=== PATIENT | female | born 1975 | race Two or more races ===

== ENCOUNTER 2018-12-26 15:35 | Emergency (ER) | payer MEDICAID ==
[~2018-12-26] VITALS: Ht 154.9 cm; Wt 79.6 kg
[~2018-12-26 15:35] MED LIST: CEPH-443 PO; DICY10CA40 PO; DOCU-144 PO; FER325 PO; IBUP-1706; LABE200T25 PO; METF-849 PO; METH250T5 PO; ONDA4TAB35 PO; PAIN MEDS
[2018-12-26 15:54] VITALS: Ht 154.9 cm; Wt 79.6 kg
[2018-12-26] MEDS ORDERED: ACET500C5 PO (18:04)
[2018-12-26] MEDS ORDERED: FLUC150T41 PO (18:07)
--- NOTE | 2018-12-26 18:08 | ERD ---
ER Documentation Chief Complaint Chief Complaint lower back pain w/vaginal problems x 1mth HPI A 43-year-old female presents ED complaining of several unrelated issues. After talking to her via in demand nancy for Kiswahili interpretation, patient was complaining mostly of a urinary tract infection. She reports that in October 29 she went to see a provider who prescribed Flagyl with no relief of her symptoms. She Returned back to the provider who prescribed her Flagyl again on November 05 in addition to antifungal cream. Patient reports that this again did not help her symptoms. She is having pelvic pain and burning with urination. She reports that she is diabetic and her last A1c was around 9.0. Reports that her blood sugar this morning was 297 and when done in the ED it was 351. Patient states she goes to [facility] and is seen by Dr. WEEKS. ROS All systems reviewed and are negative except as per history of present illness. Medications Home Meds Active Scripts Fluconazole* (Fluconazole*) 150 Mg Tablet, 150 MG PO every 72 hrs, #3 TAB Prov:RAHEEM RENEE PA-C 12/26/18 Acetaminophen* (Tylophen*) 500 Mg Capsule, 1 CAP PO Q6H PRN for PAIN AND OR ELEVATED TEMP, #20 CAP Prov:RAHEEM RENEE PA-C 12/26/18 Dicyclomine HCl (Dicyclomine HCl) 10 Mg Capsule, 10 MG PO QID for abdominal cramping, #30 CAP Prov:MATTHEW SNOW NP 10/09/15 Ondansetron Hcl* (Zofran* ODT) 4 mg -ODT Tab.disper, 4 MG PO Q8 PRN for NAUSEA AND/OR VOMITING, #30 TAB Prov:MATTHEW SNOW LANDSCAPE NURSERYMAN 10/09/15 Docusate Sodium* (Colace*) 100 Mg Capsule, 100 MG PO BID, #60 CAP Prov:MATTHEW SNOW LANDSCAPE NURSERYMAN 10/09/15 Ferrous Sulfate* (Ferrous Sulfate*) 325 Mg Tabec, 325 MG PO BID, #60 TAB Prov:MATTHEW SNOW [employer]ANDSCAPE NURSERYMAN 10/09/15 Reported Medications Metformin* (Glucophage*) Unknown Strength Tab, PO DAILY, #20 TAB 10/08/15 Ibuprofen* Susp (Motrin* Susp) 20 Mg/Ml Susp 07/11/11 Labetalol Hcl* (Labetalol Hcl*) 200 Mg Tablet, 200 MG PO BID 07/11/11 Methyldopa* (Aldomet*) 250 Mg Tablet, 250 MG PO TID 07/11/11 Cephalexin* (Keflex*) 500 Mg Capsule, 500 MG PO TID 07/11/11 [Pain Meds] No Conflict Check 07/11/11 Allergies Allergies: Coded Allergies: No Known Drug Allergies (Verified Allergy, Mild, 07/11/11) PMhx/Soc History of Surgery: Yes (;L Ovarian Cyst Removal, hernia repair) Anesthesia Reaction: No Hx Neurological Disorder: No Hx Respiratory Disorders: No Hx Cardiac Disorders: Yes (HTN) Hx Psychiatric Problems: No Hx Miscellaneous Medical Probl: Yes (DM,Anemia,Dyslipidemia) Hx Alcohol Use: No Hx Substance Use: No Hx Tobacco Use: No Smoking Status: Never smoker FmHx Family History: No diabetes Physical Exam Vitals Vital Signs Date Temp Pulse Resp B/P (MAP) Pulse Ox O2 O2 Flow FiO2 Time Delivery Rate 12/26/18 98.7 76 18 135/82 99 18:42 (99) 12/26/18 98.3 92 18 136/73 96 15:54 (94) Physical Exam Const: No acute distress Head: Atraumatic Eyes: Normal Conjunctiva ENT: Normal External Ears, Nose and Mouth. Neck: Full range of motion. Resp: Clear to auscultation bilaterally Cardio: Regular rate and rhythm, Abd: Tenderness to her suprapubic region. Skin: No petechiae or rashes Back: Tenderness to her lumbar spine Ext: No cyanosis, or edema Neur: Awake and alert Psych: Normal Mood and Affect Result Diagram: 12/26/18 1710 12/26/18 1708 Results 24 hrs Laboratory Tests Test 12/26/18 17:06 12/26/18 17:08 12/26/18 17:10 12/26/18 17:11 Urine Color STRAW Urine Clarity CLEAR Urine pH 6.0 Urine Specific 1.035 [place] Urine Ketones 1+ mg/dL Urine Nitrite NEGATIVE mg/dL Urine Bilirubin NEGATIVE mg/dL Urine NEGATIVE mg/dL Urobilinogen Urine Leukocyte NEGATIVE Casey/ul Esterase Urine Microscopic 33 /HPF RBC Urine Microscopic 2 /HPF WBC Urine Squamous FEW /HPF Epithelial Cells Urine Hemoglobin 3+ mg/dL Urine Glucose 3+ mg/dL Urine Total NEGATIVE mg/dl Protein Sodium Level 138 mmol/L Potassium Level 4.4 mmol/L Chloride Level 102 mmol/L Carbon Dioxide 26 mmol/L Level Anion Gap 10 Blood Urea 10 mg/dl Nitrogen Creatinine 0.44 mg/dl Est Glomerular > 60 mL/min Filtrat Rate mL/min Glucose Level 351 mg/dl Calcium Level 9.7 mg/dl White Blood Count 7.2 10^3/ul Red Blood Count 4.86 10^6/ul Hemoglobin 14.2 g/dl Hematocrit 42.5 % Mean Corpuscular 87.4 fl Volume Mean Corpuscular 29.2 pg Hemoglobin Mean Corpuscular 33.4 g/dl Hemoglobin Concen t Red Cell 12.7 % Distribution Width Platelet Count 326 10^3/UL Mean Platelet 8.7 fl Volume Immature 0.400 % Granulocytes % Neutrophils % 56.7 % Lymphocytes % 34.4 % Monocytes % 6.3 % Eosinophils % 1.9 % Basophils % 0.3 % Nucleated Red 0.0 /100WBC Blood Cells % Immature 0.030 10^3/ul Granulocytes # Neutrophils # 4.1 10^3/ul Lymphocytes # 2.5 10^3/ul Monocytes # 0.5 10^3/ul Eosinophils # 0.1 10^3/ul Basophils # 0.0 10^3/ul Nucleated Red 0.0 10^3/ul Blood Cells # POC Beta HCG, NEGATIVE Qualitative Test 12/26/18 17:52 Bedside Glucose 317 mg/dL Procedures/MDM ED COURSE: The patient was stable throughout ED course. I kept the patient informed of laboratory and diagnostic imaging results throughout the ED course. MEDICATIONS GIVEN: [None.] MEDICAL DECISION MAKING: Patient is a 43-year-old female complaining of vaginal infection x1 month. Patient is a uncontrolled diabetic with her last A1c around 9.0 and her blood sugar level 351 today in the ED. Patient had a urinalysis done showing no urinary tract infection but ketones and glucose in her urine. Was also bloody urine but patient is on her period currently. I believe patient is suffering from a yeast infection due to her uncontrolled diabetes. Patient was instructed to follow-up with primary care in order to manage her diabetic problem. Patient was educated that her infection will keep recurring illness her diabetic problem is improved. Patient was discharged with fluconazole. Her vital signs were reviewed. Patient is afebrile. Patient was not hypoxic. Patient was hemodynamically stable. PRESCRIPTION: Fluconazole, Tylenol DISCHARGE: At this time, patient is stable for discharge and outpatient management. I have instructed the patient to follow-up with his/her primary care physician in 1-2 days. I have discussed with the patient the possibility of needing to see a spec ialist for further workup and imaging studies if symptoms persist. I have instructed the patient to promptly return to the ER for any new or worsening symptoms including increased pain, fever, nausea, vomiting, weakness or LOC. The patient and/or family expressed understanding of and agreement with this plan. All questions were answered. Home care instructions were provided. Disclaimer: Inadvertent spelling and grammatical errors are likely due to EHR/dictation software use and do not reflect on the overall quality of patient care. Also, please note that the electronic time recorded on this note does not necessarily reflect the actual time of the patient encounter. Departure Diagnosis: Primary Impression: Uncontrolled diabetes mellitus Diabetes mellitus type: type 2 Glycemic state: with hyperglycemia Qualified Codes: E11.65 - Type 2 diabetes mellitus with hyperglycemia Additional Impression: Yeast infection Condition: Fair Patient Instructions: DIABETES, General Info Referrals: [facility] YOU HAVE RECEIVED A MEDICAL SCREENING EXAM AND THE RESULTS INDICATE THAT YOU DO NOT HAVE A CONDITION THAT REQUIRES URGENT TREATMENT IN THE EMERGENCY DEPARTMENT. FURTHER EVALUATION AND TREATMENT OF YOUR CONDITION CAN WAIT UNTIL YOU ARE SEEN IN YOUR DOCTORS OFFICE WITHIN THE NEXT 1-2 DAYS. IT IS YOUR RESPONSIBILITY TO MAKE AN APPOINTMENT FOR FOLOW-UP CARE. IF YOU HAVE A PRIMARY DOCTOR --you should call your primary doctor and schedule an appointment IF YOU DO NOT HAVE A PRIMARY DOCTOR YOU CAN CALL OUR PHYSICIAN REFERRAL HOTLINE AT IF YOU CAN NOT AFFORD TO SEE A PHYSICIAN YOU CAN CHOSE FROM THE FOLLOWING [facility] [address] [facility]. [facility] [address] [facility]. [facility] [address] [facility] [facility] [address] [facility] [facility] [address] [facility] [facility]. [address] [facility]. [facility] YOU HAVE RECEIVED A MEDICAL SCREENING EXAM AND THE RESULTS INDICATE THAT YOU DO NOT HAVE A CONDITION THAT REQUIRES URGENT TREATMENT IN THE EMERGENCY DEPARTMENT. FURTHER EVALUATION AND TREATMENT OF YOUR CONDITION CAN WAIT UNTIL YOU ARE SEEN IN YOUR DOCTORS OFFICE WITHIN THE NEXT 1-2 DAYS. IT IS YOUR RESPONSIBILITY TO MAKE AN APPOINTMENT FOR FOLOW-UP CARE. IF YOU HAVE A PRIMARY DOCTOR --you should call your primary doctor and schedule and appointment IF YOU DO NOT HAVE A PRIMARY DOCTOR YOU CAN CALL OUR PHYSICIAN REFERRAL HOTLINE AT . IF YOU CAN NOT AFFORD TO SEE A PHYSICIAN YOU CAN CHOSE FROM THE FOLLOWING [facility] INSTITUTIONS: [facility] [address] [place] [address] [facility] [address] [place] [address] [facility] [address] [place] [address] Additional Instructions: Llame al doctor MAANA y lindsay karina RAFA PARA DENTRO DE 1-2 SAL.Dgale a la secretaria que nosotros le instruimos hacer esta rafa.Avise o llame si stack condicin se empeora antes de la rafa. Regresa aqui si peor o no mejor. RAHEEM RENEE PA-C Dec 26, 2018 18:08
[2018-12-26 18:42] VITALS: BP 135/82; PULSE 76; RESP 18
== END 2018-12-26 18:43 | disposition home or self-care (01) ==
LOC: FTE 15:35
DX: E11.65 Type 2 diabetes mellitus with hyperglycemia (principal); I10 Essential (primary) hypertension; B37.9 Candidiasis, unspecified; Z79.84 Long term (current) use of oral hypoglycemic drugs
CPT/HCPCS: 36415; 80048; 81001; 81025; 82962; 85025; 87086; Z7502; 99283